=== PATIENT | male | born 1990 | race Caucasian/White ===

== ENCOUNTER 2022-03-08 01:31 | Day surgery (SDC) | payer OTHER, SELFPAY ==
[2022-03-02 08:03] VITALS: BMI 38.8
--- NOTE | 2022-03-02 08:26 | PC.NURSE ---
Report to the Outpatient Waiting Room, entrance under the green pavilion located off [facility], at time _10:00AM on date ___03/08/22____. OR Time: __12:00PM . - You and your visitor will be asked a series of questions to screen for COVID 19 for your protection. - Only one visitor is allowed at this time. - The patient visitor is requested to leave or wait in car when not with patient. - A mask is required within the hospital. Patients may have clear liquids (water, carbonated beverages, clear teas, apple juice) until 3 hours prior to surgery with a maximum of 20 ounces. - No food from midnight until time of surgery - Infants may have breast milk until 4 hours before surgery, formula 6 hours prior to surgery. - Children will be allowed to drink immediately following surgery. If applicable, please bring a bottle or sippy cup to assist with drinking. Juice, water, soda, and popsicles are readily available. For infants on formula, please bring formula the day of surgery. Pacifiers are allowed. Take the following medications with a SIP of water the morning of surgery: ___BUPROPION, BUSPIRONE Medications to discontinue per physician ____NONE Date to take last dose Please no make-up, nail maldivian, hairspray, perfume, deodorant, or body powder the day of surgery. No jewelry (including any body piercings) or valuables the day of surgery, leave them at home. Please take a shower or bath the night before, or the morning of, surgery with an antibacterial soap. Wear comfortable, loose fitting clothing. Children are encouraged to wear pajamas. - Jewelry must be removed prior to entering the operating room. Rings and piercings that are not removed may be cut off. - The hospital will not accept responsibility for valuables. - Please leave all valuables, including medications, at home the day of surgery. If you are going home after surgery, a licensed ambulette driver must drive you home. - NO public transportation without another adult. - We recommend that an adult stay with you for 24 hours following discharge. - We also recommend that you do not drive, make important decision, drink alcoholic beverages, or take any drugs that were not prescribed by your health care provider for at least 24 hours after your discharge time. For Pediatric surgeries, we recommend two adults accompany the child home (only one inside the building at this time). Follow any additional instructions given to you from your surgeon. If you or anyone in your household have experienced Covid symptoms in the past week, please notify your surgeon or the nurse liaison at the phone number below for possible testing. Telephone instructions given to __PATIENT and asked if any additional questions and then verbalized understanding. Patient advised to call surgeon office or pre surgery nurse liaison [phone] if any additional questions.
[2022-03-08 10:09] VITALS: BP 135/88; PULSE 95; RESP 16; O2SAT 98
--- NOTE | 2022-03-08 10:27 | SUR.PREOP ---
pt arrived with immobilizer sling to right arm,drsg to right posterior shoulder,pain 5/10 pt states took pain meds this am.
[2022-03-08] MEDS: LACTATED RINGERS 1,000 ML 30 ML IV CONT (10:45)
--- NOTE | 2022-03-08 10:56 | P.PNAN_ITS ---
Anes - Initial Pre Proc Eval Procedure: Operation Date: 03/08/22 12:00 Proposed Procedures p Bilateral Vasectomy - Hunter Grissom MD Date/Time: 03/08/22 10:56 Surgeon: Hunter Grissom MD Pre Op Diagnosis: sterilization Patient Data Age: 31 Gender: M Height: 1.83 m Weight: 130.9 kg Last Vital Signs Pulse 95 03/08/22 10:09 Resp 16 03/08/22 10:09 BP 135/88 03/08/22 10:09 Pulse Ox 98 03/08/22 10:09 O2 Del Method Room Air 03/08/22 10:09 Allergies Allergy/AdvReac Type Severity Reaction Status Date / Time No Known Allergies Allergy Verified 03/08/22 10:23 Home Medications Medication Instructions Recorded Confirmed Type acetaminophen 500 mg capsule 1,000 mg PO Q6H PRN Pain 03/02/22 03/08/22 History bupropion HCl 150 mg 24 hr tablet, 150 tablet PO QAM 03/02/22 03/08/22 History extended release buspirone 15 mg tablet 1 tablet PO TID 03/02/22 03/08/22 History celecoxib 200 mg capsule 1 cap PO QAM 03/02/22 03/08/22 History tramadol 50 mg tablet 1 tablet PO HS 03/02/22 03/08/22 History Patient hx anesthesia problems: none Family hx anesthesia problems: none Results Review: All pre-operative results and documents have been reviewed as part of the pre- operative evaluation. FOR[facility] Past Medical History Medical History (Updated 03/08/22 @ 10:56 by Tulio Jordan MD) Chronic back pain Obesity Surgical History Surgical History (Updated 03/08/22 @ 10:56 by Tulio Jordan MD) History of shoulder surgery Social History Social History Smoking packs per day: 0.20 Smoking cigarettes per day: 4.0 Years smoked: 15 Smoking pack-years: 3.00 Smoking status: Former smoker Tobacco type: cigarettes Smoking end date: 03/11/19 Alcohol intake: current Drinks per week: 2 Substance use: never Living arrangements: with family Additional living arrangements comments: AND CHILDREN Spiritual care concerns: No Anes - Eval Final PreProcedure Day of Procedure 03/08/22 10:56 Patient weight: obese Heart: regular rate and rhythm Lungs: clear to auscultation Airway: Mallampati scale class 1 Neurological: alert and oriented Last oral intake: >/= 8 hours ASA classification: III Emergent: no Anesthetic plan: proceed Anesthesia type and monitoring: general LMA and standard monitoring Results Review: All pre-operative results and documents have been reviewed as part of the pre- operative evaluation. Informed Consent: The patient's anesthetic plan and its attendant risks and benefits were discussed with the patient/family/POA. Questions were solicited and answers provided to the satisfaction of the patient/family/POA.
--- NOTE | 2022-03-08 11:52 | WPDHPUPDATE1 ---
History and Physical Update Update Date/Time: 03/08/22 11:52 History and Physical has been reviewed, including an updated exam of the patient. There are NO changes in the patient's condition. Risks, benefits, and alternatives have been discussed and questions answered. Patient agrees to proceed with procedure. Proceed with bilateral vasectomy
[2022-03-08] MEDS: ceFAZolin 3 GM/D5W 100 ML 100 ML IVPB (12:26)
--- NOTE | 2022-03-08 12:53 | W.PM.PROC2 ---
Procedure Note - Detailed Date of Procedure 03/08/22 Pre-op Diagnosis sterilization Post-op Diagnosis Same Procedure Performed Bilateral vasectomy Surgeon Hunter Grissom MD Anesthesia General Description of Procedure Patient is taken the operative suite correctly identified. Once anesthesia was obtained was prepped and draped usual sterile fashion. Midline scrotal incision was made. The right vas was isolated with a vas clamp. We anesthetized the cord using 1% lidocaine. Segment of the vas was then transected. The ends were fulgurated ligated and buried. This was done similarly on the left side. Skin was then closed using 3-0 chromic interrupted fashion. We anesthetized the skin using 5 cc of lidocaine. Patient is taken recovery room stable condition. Given the standard post vas instructions. Estimated Blood Loss 0 Drains No Packing No Pathology Yes Complications No immediate complications Condition Stable Disposition PACU
[2022-03-08 13:01] VITALS: BP 162/96; PULSE 91; RESP 12; TEMP 36.4; O2SAT 100
[2022-03-08 13:16] VITALS: BP 158/94; PULSE 91; RESP 16; O2SAT 96
[2022-03-08 13:31] VITALS: BP 140/91; PULSE 87; RESP 16; O2SAT 97
[2022-03-08 13:45] VITALS: BP 126/88; PULSE 71; RESP 16
[2022-03-08 14:15] VITALS: BP 138/83; PULSE 80; RESP 16
== END 2022-03-08 14:59 | disposition home or self-care (01) ==
PROVIDERS: Visit Provider Urology
PROC: (CPT 55250; principal; 2022-03-08 12:00)
DX: Z30.2 Encounter for sterilization (principal); Z87.891 Personal history of nicotine dependence; E66.9 Obesity, unspecified; Z68.39 Body mass index [BMI] 39.0-39.9, adult
CPT/HCPCS: 55250; 88300; A9270; J0690; J2250; J2405; J2704; J3010; J7120